=== PATIENT | female | born 1990 | race Two or more races ===

== ENCOUNTER 2017-12-29 11:30 | Emergency (ER) | payer OTHER ==
[~2017-12-29] VITALS: Ht 152.4 cm; Wt 63.5 kg
[~2017-12-29 11:30] MED LIST: CARAFATE1 G PO; PREVACID30 MG PO; PROTONIX20 MG PO; ZANTAC150 M3 PO; ZANTAC300 MG PO
== END 2017-12-29 14:54 | disposition home or self-care (01) ==
LOC: ER 11:30
DX: S92.355A Nondisplaced fracture of fifth metatarsal bone, left foot, initial encounter for closed fracture (principal); W10.9XXA Fall (on) (from) unspecified stairs and steps, initial encounter; Y93.89 Activity, other specified; Y92.89 Other specified places as the place of occurrence of the external cause; Y99.8 Other external cause status

== ENCOUNTER 2018-01-22 13:01 | Outpatient (CLI) | payer OTHER | END 2018-01-22 13:07 | disposition home or self-care (01) | LOC: RAD 501 13:01 | DX: M25.572 Pain in left ankle and joints of left foot (principal) ==